=== PATIENT | female | born 1980 | race Hispanic/Latino ===

== ENCOUNTER 2016-11-17 16:20 | Emergency (ER) | payer SELFPAY ==
[2016-11-17 16:53] VITALS: BP 101/64
--- NOTE | 2016-11-17 18:46 | Emergency Department Report ---
Upper Extremity - HPI Chief Complaint: Fall Stated Complaint: NECK /SHOULDER SWOLLEN/UNABLE TO MOVE Time Seen by Provider: 11/17/16 18:13 Upper Extremity: Right Shoulder Occurred When: Today Mechanism: Fall Severity: severe Symptoms: Yes Pain with Movement, Yes Deformity, Yes Limited Range of Movement, Yes Swelling, No Numbness, No Weakness ED Review of Systems ROS: Stated complaint: NECK /SHOULDER SWOLLEN/UNABLE TO MOVE Other details as noted in HPI Constitutional: denies: chills, fever Eyes: denies: eye pain, eye discharge, vision change ENT: denies: ear pain, throat pain Respiratory: denies: cough, shortness of breath, wheezing Cardiovascular: denies: chest pain, palpitations Endocrine: no symptoms reported Gastrointestinal: denies: abdominal pain, nausea, diarrhea Genitourinary: denies: urgency, dysuria, discharge Musculoskeletal: joint swelling, arthralgia. denies: back pain Skin: denies: rash, lesions Neurological: denies: headache, weakness, paresthesias Psychiatric: denies: anxiety, depression Hematological/Lymphatic: denies: easy bleeding, easy bruising ED Past Medical Hx - Past Medical History Previous Medical History?: Yes Additional medical history: Childbirth x 3 - Surgical History Past Surgical History?: Yes Additional Surgical History: x 3 - Social History Smoking Status: Current Every Day Smoker Substance Use Type: Alcohol, Prescribed - Medications Home Medications: Home Medications Medication Instructions Recorded Confirmed Last Taken Type Oxycodone HCl/Acetaminophen 1 each PO Q6HR PRN #15 tablet 11/17/16 Unknown Rx [Percocet 10/325 mg] Upper Extremity Exam - Exam General: Vital signs noted. No distress. Alert and acting appropriately. Shoulder Exam: Yes Shoulder Tenderness, Yes Clavicle Tenderness, Yes AC Joint Tenderness, No Normal Range of Motion in Shoulder, No Shoulder Deformity Arm Exam: No Arm/Humerus Tenderness, No Arm Deformity Wrist: No Wrist Tenderness, No Snuffbox Tenderness CMS Exam: Yes Normal Distal Pulses, Yes Normal Capillary Refill, Yes Normal Distal Sensation, No Broken Skin ED Course Vital Signs 11/17/16 16:49 Temperature 98.7 F Pulse Rate 79 Respiratory 18 Rate Blood Pressure 101/64 O2 Sat by Pulse 100 Oximetry - Reevaluation(s) Reevaluation #1: 11/17/16 18:56 Discussed case with he advised to have patient follow-up in his office in 2 days. Just apply sling and swath and sent home with pain meds. Critical care attestation.: If time is entered above; I have spent that time in minutes in the direct care of this critically ill patient, excluding procedure time. ED Disposition Clinical Impression: Fx clavicle shaft-closed Disposition: DISCHARGED TO HOME OR SELFCARE Is pt being admited?: No Condition: Stable Instructions: Clavicle Fracture (ED) Prescriptions: Oxycodone HCl/Acetaminophen [Percocet 10/325 mg] 1 each PO Q6HR PRN #15 tablet PRN Reason: Pain Referrals: PRIMARY CAREMD [Primary Care Provider] - 3-5 Days PETER REYES MD [Staff Physician] - 3-5 Days Forms: Work/School Release Form(ED)
[2016-11-17] MEDS ORDERED: PERCOCET 5/325 PO PRN (19:18)
--- NOTE | 2016-11-17 19:31 | XRay Report ---
FINAL REPORT EXAM: XR SHOULDER 2 RT HISTORY: fall TECHNIQUE: 3 views of right shoulder. PRIORS: None. FINDINGS: Fracture of right midshaft clavicle, with approximately 2 shaft width cephalad displacement of proximal fragment. No dislocation. AC joint maintained. Remainder of osseous and soft tissue structures grossly unremarkable. IMPRESSION: 1. Fracture right clavicle.
== END 2016-11-17 19:50 | disposition home or self-care (01) ==
LOC: ED 16:20
DX: S42.021A Displaced fracture of shaft of right clavicle, initial encounter for closed fracture (principal); F17.200 Nicotine dependence, unspecified, uncomplicated; W19.XXXA Unspecified fall, initial encounter; Y93.89 Activity, other specified; Y99.9 Unspecified external cause status; Y92.89 Other specified places as the place of occurrence of the external cause
CPT/HCPCS: 99284

== ENCOUNTER 2017-10-15 06:32 | Emergency (ER) | payer MEDICAID ==
[2017-10-15] MEDS ORDERED: NACL 0.9% 1000 ML 2,000 ML ONE (07:01)
[2017-10-15] MEDS ORDERED: NACL 0.9% 1000 ML 1,000 ML IV ONE (07:32)
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
[2017-10-15 07:39] LABS: Hematocrit 35.2 % (30.3-42.9); Hemoglobin 11.6 gm/dl (10.1-14.3); Mean Corpuscular HGB Conc 33 % (30-34); Mean Corpuscular Hemoglobin 29 pg (28-32); Mean Corpuscular Volume 88 fl (79-97); Platelet Count 306 K/mm3 (140-440); Red Blood Count 4.01 M/mm3 (3.65-5.03); Red Cell Distribution Width 14.2 % (13.2-15.2)
[2017-10-15 07:52] LABS: Calcium 8.3 mg/dL (8.4-10.2)
[2017-10-15 09:11] LABS: Bacteria,Urine 1+ /HPF (Negative); Bilirubin,Urine NEG (Negative); Blood,Urine SM (Negative); Color,Urine Yellow (Yellow); Hyaline Casts,Urine 3 /LPF; Mucus,Urine FEW /HPF; Urobilinogen,Urine < 2.0 mg/dL (<2.0)
[2017-10-15 09:23] LABS: Amphetamine Screen,Urine PRESUMPTIVE NEGATIVE; Cannabinoid Screen,Urine PRESUMPTIVE NEGATIVE; Methadone Screen,Urine PRESUMPTIVE NEGATIVE; Opiate Screen,Urine PRESUMPTIVE NEGATIVE
[2017-10-15 09:34] LABS: Basophils % (Manual) 0 % (0.0-1.8); RBC Morphology Normal; Total Cells Counted 100
[2017-10-15 09:35] LABS: Platelet Estimate Cons
[2017-10-15 10:08] LABS: Benzodiazepines Screen,Urine PRESUMPTIVE POSITIVE; Cocaine Screen,Urine PRESUMPTIVE POSITIVE
[2017-10-15 18:59] VITALS: BP 98/73
== END 2017-10-15 19:00 | disposition home or self-care (01) ==
LOC: ED 06:32
DX: R41.82 Altered mental status, unspecified (principal); F19.10 Other psychoactive substance abuse, uncomplicated; F17.200 Nicotine dependence, unspecified, uncomplicated
CPT/HCPCS: 36415; 80048; 80307; 81001; 84703; 85007; 85025; 93005; 93010; 96360; 99284; G0480; J7030; 80320

== ENCOUNTER 2017-10-16 13:30 | Emergency (ER) | payer MEDICAID ==
[2017-10-16 13:45] VITALS: BP 109/66
[2017-10-16 14:01] LABS: Basophils % (Auto) 0.4 % (0.0-1.8); Eosinophils # (Auto) 0.3 K/mm3 (0.0-0.4); Eosinophils % (Auto) 4.3 % (0.0-4.3); Hematocrit 36.2 % (30.3-42.9); Hemoglobin 12.1 gm/dl (10.1-14.3); Lymphocytes # (Auto) 1.8 K/mm3 (1.2-5.4); Lymphocytes % (Auto) 28.2 % (13.4-35.0); Mean Corpuscular HGB Conc 34 % (30-34); Mean Corpuscular Hemoglobin 30 pg (28-32); Mean Corpuscular Volume 88 fl (79-97); Monocytes # (Auto) 0.3 K/mm3 (0.0-0.8); Monocytes % (Auto) 5.4 % (0.0-7.3); Platelet Count 335 K/mm3 (140-440); Red Cell Distribution Width 13.9 % (13.2-15.2)
[2017-10-16 14:23] LABS: BUN/Creatinine Ratio 17; Blood Urea Nitrogen 12 mg/dL (7-17); Calcium 8.6 mg/dL (8.4-10.2); Hemolysis Index 2
[2017-10-16] MEDS ORDERED: BENADRYL IV ONE (14:49)
--- NOTE | 2017-10-16 16:46 | Emergency Department Report ---
ED General Adult HPI - General Chief complaint: Medical Clearance Stated complaint: ANXIETY Time Seen by Provider: 10/16/17 16:14 Source: patient Mode of arrival: Ambulatory Limitations: Altered Mental Status - History of Present Illness Initial comments: Patient is a 37-year-old female history of anxiety and recreational drug use, presented to the ER with twitching of her mouth and stating that she has been having pain and swelling in her gum area secondary to recent dental work up 1 week ago. Patient received Benadryl in the ER and stated that her symptoms is improving. Patient denied any visual or auditory hallucination. No suicidal or homicidal thoughts. - Related Data Previous Rx's Medication Instructions Recorded Last Taken Type Oxycodone HCl/Acetaminophen 1 each PO Q6HR PRN #15 tablet 11/17/16 Unknown Rx [Percocet 10/325 mg] Allergies Allergy/AdvReac Type Severity Reaction Status Date / Time No Known Allergies Allergy Unverified 11/17/16 16:48 ED Review of Systems ROS: Stated complaint: ANXIETY Other details as noted in HPI Comment: All other systems reviewed and negative Constitutional: denies: chills, fever ENT: dental pain. denies: ear pain, throat pain Respiratory: denies: cough, orthopnea, shortness of breath, SOB with exertion, SOB at rest, wheezing Cardiovascular: denies: chest pain, palpitations, dyspnea on exertion, orthopnea , edema, syncope, paroxysmal nocturnal dyspnea Gastrointestinal: denies: abdominal pain, nausea, vomiting, diarrhea, constipation Genitourinary: denies: urgency, dysuria, frequency, hematuria Skin: denies: rash, lesions, change in color Neurological: denies: headache, weakness, numbness, paresthesias Psychiatric: anxiety. denies: depression, auditory hallucinations, visual hallucinations, homicidal thoughts, suicidal thoughts Hematological/Lymphatic: denies: easy bleeding, easy bruising, swollen glands ED Past Medical Hx - Past Medical History Previous Medical History?: No Additional medical history: Childbirth x 3 - Surgical History Past Surgical History?: No Additional Surgical History: x 3 - Social History Smoking Status: Never Smoker Substance Use Type: None - Medications Home Medications: Home Medications Medication Instructions Recorded Confirmed Last Taken Type Oxycodone HCl/Acetaminophen 1 each PO Q6HR PRN #15 tablet 11/17/16 Unknown Rx [Percocet 10/325 mg] ED Physical Exam - General Limitations: Altered Mental Status General appearance: alert, in no apparent distress, anxious - Head Head exam: Present: atraumatic, normocephalic - Eye Eye exam: Present: normal appearance, PERRL - ENT ENT exam: Present: normal exam, normal orophraynx, mucous membranes moist - Neck Neck exam: Present: normal inspection, full ROM. Absent: tenderness, meningismus, lymphadenopathy, thyromegaly - Respiratory Respiratory exam: Present: normal lung sounds bilaterally. Absent: respiratory distress, wheezes, rales, rhonchi, stridor, chest wall tenderness, accessory muscle use, decreased breath sounds, prolonged expiratory - Cardiovascular Cardiovascular Exam: Present: regular rate, normal rhythm, normal heart sounds - GI/Abdominal GI/Abdominal exam: Present: soft, normal bowel sounds. Absent: distended, tenderness, guarding, rebound, rigid, organomegaly, mass, bruit, pulsatile mass - Extremities Exam Extremities exam: Present: normal inspection, full ROM, normal capillary refill - Back Exam Back exam: Present: normal inspection, full ROM. Absent: CVA tenderness (R), CVA tenderness (L), muscle spasm, paraspinal tenderness - Neurological Exam Neurological exam: Present: alert, oriented X3, CN II-XII intact, normal gait - Psychiatric Psychiatric exam: Present: normal affect, normal mood, anxious. Absent: depressed, agitated, flat affect, manic, homicidal ideation, suicidal ideation - Skin Skin exam: Present: warm, intact, normal color. Absent: cyanosis, diaphoretic, erythema ED Course Vital Signs 10/16/17 13:40 Temperature 98.6 F Pulse Rate 67 Respiratory 20 Rate Blood Pressure 109/66 O2 Sat by Pulse 98 Oximetry - Reevaluation(s) Reevaluation #1: 10/16/17 17:47 Patient ER course is stable with significant improvement per patient report. Patient denied any difficulty breathing seeing or difficulty swallowing. No skin rash. ED Medical Decision Making - Lab Data Result diagrams: 10/16/17 13:49 10/16/17 13:49 Critical care attestation.: If time is entered above; I have spent that time in minutes in the direct care of this critically ill patient, excluding procedure time. ED Disposition Clinical Impression: Pain due to dental caries, Allergic reaction Disposition: DC- TO HOME OR SELFCARE Is pt being admited?: No Condition: Stable Instructions: Dental Caries (ED) Referrals: PRIMARY CARE, [Primary Care Provider] - 3-5 Days
== END 2017-10-16 18:03 | disposition home or self-care (01) ==
LOC: ED 13:30
DX: K02.9 Dental caries, unspecified (principal); T78.40XA Allergy, unspecified, initial encounter; Y92.89 Other specified places as the place of occurrence of the external cause
CPT/HCPCS: 36415; 80048; 85025; 96374; 99283; G0480; J1200; 80320